=== PATIENT | male | born 1990 | race Caucasian/White ===

== ENCOUNTER 2019-07-02 09:43 | Emergency (ER) | payer BC ==
[~2019-07-02] VITALS: Ht 177.8 cm; Wt 107.3 kg
[2019-07-02] MEDS ORDERED: ASPIRIN81 MG PO (09:51)
[2019-07-02] MEDS ORDERED: LISINOPRIL10 MG PO (09:51)
[2019-07-02 10:15] LABS: BASOPHILS 0.3 % (0-2); EOSINOPHILS 3.6 % (0-7); HEMATOCRIT 43.4 % (42.0-54.0); HEMOGLOBIN 15.1 g/dL (13.5-17.5); IMMATURE GRANULOCYTES 0.7 % (0-5); LYMPHOCYTES 36.5 % (15-50); MCH 30.9 pg (26.0-34.0); MCHC 34.8 g/dL (31.0-37.0); MCV 88.8 fL (80.0-100.0); MEAN PLATELET VOLUME 9.6 fL (7.4-10.4); MONOCYTES 7.9 % (2-11); PLATELET COUNT 291 10x3/uL (130-400); RBC 4.89 10x6/uL (4.20-6.10); RDW 12.5 % (11.5-14.5); WBC 6.1 10x3/uL (4.8-10.8)
[2019-07-02 10:21] LABS: CALC OSMOLALITY 278 mosm/kg (275-300); CHLORIDE - SERUM 102 mmol/L (98-107); GLUCOSE 84 mg/dL (74-106); POTASSIUM - SERUM 4.3 mmol/L (3.5-5.1); SODIUM 140 mmol/L (136-145); UREA NITROGEN 15 mg/dL (7-18); eGFR NON AFRICAN AMERICAN > 90 mL/min (90-120)
[2019-07-02 10:22] LABS: INR 0.96 (0.85-1.17); PROTIME 12.7 SECONDS (11.6-15.0)
[2019-07-02 10:35] LABS: APTT 26.3 SECONDS (22.8-39.4); D-DIMER-QUANTITATIVE 0.27 ug/mLFEU (0.20-0.54)
[2019-07-02 10:39] LABS: ALBUMIN 4.7 g/dL (3.4-5.0); ALKALINE PHOSPHATASE 93 U/L (46-116); ALT (SGPT) 205 U/L (10-68); BILIRUBIN - TOTAL 0.74 mg/dL (0.2-1.3); CKMB 0.6 U/L (0.0-3.6); CREATINE KINASE 92 UL (21-232); PROTEIN - SERUM 8.4 g/dL (6.4-8.2); TROPONIN-I < 0.017 ng/mL (0.000-0.060)
[2019-07-02 11:42] VITALS: Ht 177.8 cm; Wt 107.3 kg
[2019-07-02 13:07] VITALS: BP 113/70
--- NOTE | 2019-07-03 10:40 | CN ---
PATIENT NAME:ARCADIO WATTS MEDICAL RECORD: [id number] : 88 LOCATION:[facility] ADMIT DATE: ACCOUNT: [id number] CONSULTING PHYSICIAN: NAHUN JOVEL MD REFERRING PHYSICIAN: KIM DESHPANDE MD DATE OF CONSULTATION: 07/02/2019 ADMITTING DIAGNOSIS: Exertional chest pain. 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 He has also noticed the shortness of breath out of proportion to what his baseline is. He has not had a previous cardiac workup. His EKG is normal. Troponin is normal. PHYSICAL EXAMINATION: CONSTITUTIONAL/GENERAL APPEARANCE: Well nourished, well developed, appears stated age. EYES: Lids and conjunctivae noninjected. No discharge. No pallor. ENT: Lips within normal limit. No cyanosis. No pallor. NECK: Carotid arteries, bilateral normal upstroke. No bruits. No thrills. No jugular venous pressure or distention. CERVICAL LYMPH NODES: Nontender. Nonenlarged. THYROID: Not enlarged. No nodules. CARDIOVASCULAR: Precordial exam, nondisplaced. No heaves or pericardial thrills. Rate and rhythm, regular. Heart sounds, normal S1, normal S2. No S3, no gallop, no rub. Systolic murmur, not heard. Diastolic murmur, not heard. RESPIRATORY: Respiratory effort, unlabored. Normal curvature. No thoracic deformity. No chest wall tenderness. Percussion, resonant. Auscultation, clear. No wheezes, no rales, no rhonchi. ABDOMEN: Soft, nondistended, nontender. No abdominal pain, no vomiting and normal appetite. MUSCULOSKELETAL: No joint tenderness, normal gait, normal tone. SKIN: Warm and dry. OVERALL IMPRESSION: Chest pain, shortness of breath. At this time, we will order an echocardiogram to rule out a nonischemic cardiomyopathy and risk stratify with stress testing. Further care depends upon findings of the stress test. TRANSINT:[id number] Voice Confirmation ID: [id number] DOCUMENT ID: [id number] NAHUN JOVEL MD at 1040 CC: [id number] DICTATION DATE: 07/02/19 1141 FITTINGS TIGHTENER: 07/02/192001 DEP ER 07/02/19 [facility] [address] [place] [address]
--- NOTE | 2019-07-03 10:40 | EC ---
PATIENT:ARCADIO WATTS DATE OF SERVICE: 07/02/19 SEX: M MEDICAL RECORD: [id number] DATE OF : 88 LOCATION:[facility] AGE OF PATIENT: 28 ADMISSION DATE: 07/02/19 REFERRING PHYSICIAN: INTERPRETING PHYSICIAN: NAHUN WARREN MD ECHOCARDIOGRAM REPORT ECHO CHARGES 4 ECHO COMPLETE Date: 07/02/19 CLINICAL DIAGNOSIS: CHEST PAIN,SOB ECHOCARDIOGRAPHIC MEASUREMENTS (adult normal given) AC root (d.<3.7cm) 3.0 cm LV Septum d (<1.2 cm> 1.7 cm Valve Excursion 1.5 cm LV Septum (systole) 2.0 cm Left Atria (s.<4.0cm> 3.4 cm LVPW d(<1.2cm) 1.9 cm RV (d.<2.3cm) 3.5 cm LVPW (sytole) 2.2 cm LV diastole(<5.6CM) 4.3 cm MV E-F(>70mm/sec) cm LV systole 2.6 cm LVOT Diameter 2.0 cm MV exc.(>10mm) 1.7 cm Est.ejection fraction (50-75%) % DOPPLER: LVIT cm/sec A 43.0 cm/sec E 60.0 cm/sec LA cm/sec RVSP 18 mmHg LVOT 67 cm/sec AOP1/2T m/s Asc. 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 Warren TAPE# PACS Pericardial Effusion N DATE OF SERVICE: FINDINGS: 1. Left ventricular chamber size is within normal limits. Left ventricular systolic function is normal. Overall ejection fraction estimated at 60%. 2. Left atrium, right atrium, and right ventricle chamber sizes are within normal limits. 3. Valvular structures have normal structure and motion. 4. Doppler interrogation only reveals trace tricuspid regurgitation, no other valvular insufficiency or stenosis. Pulmonary systolic pressure is estimated at ECHOCARDIOGRAM REPORT [id number] ARCADIO WATTS 18 mmHg. 5. No evidence of pericardial effusion or left ventricular thrombus. TRANSINT:[id number] Voice Confirmation ID: [id number] DOCUMENT ID: [id number] NAHUN WARREN MD at 1040 CC: [id number] DICTATION DATE: 07/02/191706 LEAD SHAREPOINT DEVELOPER: 07/03/19 0140 DEP ER 07/02/19 [place] [id number]
--- NOTE | 2019-07-03 10:40 | ST ---
PATIENT:ARCADIO WATTS MEDICAL RECORD: [id number] SEX: M LOCATION:.ER ORDER #: ADMISSION DATE: 07/02/19 AGE OF PATIENT: 28 REFERRING PHYSICIAN: INTERPRETING PHYSICIAN: NAHUN JOVEL MD DATE OF SERVICE: 07/02/2019 INDICATIONS: Chest pain. He was exercised on standard Eliud protocol for 8 minutes with a hypertensive response with systolic blood pressure approaching 200. He had no chest pain, no EKG changes, no dysrhythmias. OVERALL IMPRESSION: Negative for inducible ischemia at adequate cardiac workload. Standard medical management and treatment of the hypertension. TRANSINT:[id number] Voice Confirmation ID: [id number] DOCUMENT ID: [id number] NAHUN JOVEL MD at 1040 CC: [id number] DICTATION DATE: 07/02/19 1210 ROTARY ENGINE ASSEMBLER: 07/03/19 0322 [facility] ER 07/02/[address] [id number]
== END 2019-07-02 13:03 | disposition home or self-care (01) ==
LOC: D.ER 09:43
PROVIDERS: Family Medicine
DX: R07.89 Other chest pain (principal); I10 Essential (primary) hypertension